=== PATIENT | female | born 1980 | race Two or more races ===

== ENCOUNTER 2020-05-29 09:44 | Emergency (ER) | payer OTHER ==
[~2020-05-29] VITALS: Ht 157.5 cm; Wt 72.6 kg
[2020-05-29 09:50] VITALS: BP 141/85
--- NOTE | 2020-05-29 09:50 | NUR ---
BED 2 PT BIB SELF C/O EARACHE. NO OTHER SYMPTOMS REPORTED. VS CHECKED. AWAITING MD [place].
== END 2020-05-29 11:00 | disposition home or self-care (01) ==
LOC: ER 09:54
DX: H66.91 Otitis media, unspecified, right ear (principal); I88.9 Nonspecific lymphadenitis, unspecified; R51.9 Headache, unspecified
CPT/HCPCS: 70450-TC

== ENCOUNTER 2020-12-25 20:44 | Emergency (ER) | payer OTHER ==
[~2020-12-25] VITALS: Ht 157.5 cm; Wt 74.8 kg
--- NOTE | 2020-12-25 20:59 | NUR ---
PATIENT TO ER BED 9 C/O LOWER ABDOMINAL PAIN BILATERALLY FOR 2x WEEKS. PATIENT DENIES HAVING THIS TYPE OF PAIN. DENIES BURNING UPON URINATION. LAST BM WAS THIS MORNING W/ NO ISSUES. PATIENT IS AAOX4. NO SOB. BREATHING EVENLY AND UNLABORED ON ROOM AIR. CONNECTED TO THE MONITOR.
[2020-12-25] MEDS ORDERED: ONDANSETRON HCL/PF 4 MG/2 ML VIAL ONE (21:38)
[2020-12-25] MEDS ORDERED: MORPHINE SULFATE INJ 4 MG/ML DISP.SYRIN ONE (21:38)
[2020-12-25 21:58] LABS: BASOPHILS # (AUTO) 0.1 /CMM (0.0-0.2); BASOPHILS % (AUTO) 1.5 % (0.0-2.0); EOSINOPHILS % (AUTO) 3.3 % (0.0-6.0); HEMATOCRIT 41 % (33-45); HEMOGLOBIN 13.6 g/dL (11.5-14.8); LYMPHOCYTES # (AUTO) 2.3 /CMM (0.8-4.8); LYMPHOCYTES % (AUTO) 38.7 % (20.0-44.0); MEAN CORPUSCULAR HGB CONC 33 g/dl (31.0-36.0); MEAN CORPUSCULAR VOLUME 93 fL (82-100); MONOCYTES # (AUTO) 0.5 /CMM (0.1-1.30); MONOCYTES % (AUTO) 8.9 % (2.0-12.0); NEUTROPHILS # (AUTO) 2.8 /CMM (1.8-8.9); NEUTROPHILS % (AUTO) 47.6 % (43.0-81.0); PLATELET COUNT (AUTO) 312 /CMM (150-450); RED BLOOD CELL COUNT(AUTO) 4.41 MIL/uL (4.0-5.2)
[2020-12-25] MEDS: ONDANSETRON HCL/PF 4 MG/2 ML VIAL IVP ONE (22:04)
[2020-12-25] MEDS: IV NS 0.9% 1,000 ML BAG IV ONE (22:04)
[2020-12-25] MEDS: MORPHINE SULFATE INJ 2 MG/ML DISP.SYRIN IV ONE (22:04)
[2020-12-25 22:13] LABS: CALCIUM, SERUM 9.6 mg/dL (8.5-10.1); CREATININE 0.7 mg/dL (0.6-1.3)
[2020-12-25 22:20] LABS: ALBUMIN 4.1 g/dL (3.4-5.0); BILIRUBIN,TOTAL 0.2 mg/dL (0.2-1.0); TOTAL PROTEIN, SERUM 8.6 g/dL (6.4-8.2)
[2020-12-25 23:27] LABS: BILIRUBIN,URINE NEGATIVE (NEGATIVE); COLOR,URINE RED (YELLOW); LEUKOCYTE ESTERASE ,URINE NEGATIVE (NEGATIVE); NITRITE, URINE NEGATIVE (NEGATIVE); PH,URINE 5.5 (5.0-8.0); PROTEIN,URINE 30 mg/dl (NEGATIVE); UGLUCOSE NEGATIVE (NEGATIVE); UROBILINOGEN,URINE 0.2 EU/dL (0.2)
[2020-12-25 23:47] LABS: RBC,URINE TOO NUMEROUS TO COUN /HPF (0-2)
[2020-12-25 23:49] LABS: BACTERIA,URINE Few /HPF (None Seen); SQUAMOUS EPITHELIAL CELL,UR Few /HPF (None Seen); URINE AMORPHOUS URATE Few /HPF (None Seen); WBC,URINE 51-80 /HPF (0-3)
[2020-12-26] MEDS ORDERED: CT SWABBABLE VALVE TRANS SET 1 EA INFUS.SET MC ONE (00:21)
[2020-12-26] MEDS ORDERED: IV NS 0.9% 250 ML IV ONE (00:21)
[2020-12-26] MEDS ORDERED: IOHEXOL-300 100 ML VIAL IV ONE (00:21)
[2020-12-26] MEDS ORDERED: IBUP-1957 PO (00:45)
[2020-12-26] MEDS ORDERED: ONDA4TAB11 PO (00:45)
--- NOTE | 2020-12-26 00:57 | NUR ---
IV removed. Catheter intact and site benign. Pressure and 4x4 applied to site. No bleeding noted.
--- NOTE | 2020-12-26 00:58 | NUR ---
Patient discharged to home in stable condition. Written and verbal after care instructions given. Patient verbalizes understanding of instruction.
[2020-12-26 02:43] VITALS: BP 122/68
== END 2020-12-26 00:59 | disposition home or self-care (01) ==
LOC: ER 20:47
DX: N83.201 Unspecified ovarian cyst, right side (principal)
CPT/HCPCS: 36415; 74177; 76856; 80048; 80076; 81001; 83690; 84703; 85025; 96361; 96374; 96375; 99285; J2270; J2405; J7030; J7050; Q9967; 87086-TC

== ENCOUNTER → 2024-08-10 | Emergency (ER) | payer MEDICAID, OTHER ==
[~2024-08-10] VITALS: Ht 157.5 cm; Wt 74.8 kg
[~2024-08-10] MED LIST: IBUP-1957 PO; ONDA4TAB11 PO
[2024-08-10] MEDS: IV NS 0.9% 1,000 ML BAG IV ONE (23:24)
[2024-08-10 23:47] LABS: BASOPHILS # (AUTO) 0.1 K/uL (0.0-0.2); BASOPHILS % (AUTO) 1.1 % (0.0-2.0); EOSINOPHILS # (AUTO) 0.2 K/uL (0.0-0.7); EOSINOPHILS % (AUTO) 2.9 % (0.0-6.0); HEMATOCRIT 39 % (33-45); LYMPHOCYTES # (AUTO) 2.3 K/uL (0.8-4.8); LYMPHOCYTES % (AUTO) 36.4 % (20.0-44.0); MEAN CORPUSCULAR HEMOGLOBIN 30 PG (26.0-33.0); MEAN CORPUSCULAR HGB CONC 33 g/dl (31.0-36.0); MEAN CORPUSCULAR VOLUME 91 fL (82-100); MONOCYTES # (AUTO) 0.6 K/uL (0.1-1.30); MONOCYTES % (AUTO) 8.9 % (2.0-12.0); NEUTROPHILS # (AUTO) 3.2 K/uL (1.8-8.9); NEUTROPHILS % (AUTO) 50.7 % (43.0-81.0); PLATELET COUNT (AUTO) 245 K/uL (150-450); RED BLOOD CELL COUNT(AUTO) 4.35 MIL/uL (4.0-5.2); RED CELL DISTRIBUTION WIDTH 16.1 % (11.5-15.0); WHITE BLOOD COUNT (AUTO) 6.3 K/uL (4.3-11.0)
[2024-08-11 00:05] LABS: CALCIUM, SERUM 9.3 mg/dL (8.5-10.1); CREATININE 0.6 mg/dL (0.6-1.3); POTASSIUM 3.6 mmol/L (3.5-5.1)
[2024-08-11 02:27] VITALS: BP 120/62; TEMP 97.8; O2SAT 98
== END ==
LOC: ER 22:20
DX: R55 Syncope and collapse (principal); E07.9 Disorder of thyroid, unspecified; Z79.1 Long term (current) use of non-steroidal anti-inflammatories (NSAID)
CPT/HCPCS: 99284; 96360; 93005; 85025; 80048; 36415; 84702; J7030; A4223